=== PATIENT | female | born 1975 | race Caucasian/White ===

== ENCOUNTER 2020-04-18 11:21 | Day surgery (SDC) | payer OTHER ==
[~2020-04-18 11:21] MED LIST: DIPRIVAN 200 MG/20 ML IV ONE; Ketamine HCl 50 MG/ML ONE
[2020-04-18] MEDS ORDERED: BUPIVACAINE 0.5% VIAL IJ ONE (11:22)
[2020-04-18] MEDS ORDERED: Decadron 4 MG INJ IV ONE (11:22)
--- NOTE | 2020-04-18 13:21 | XRAY ---
Indication: Left C3-C6 MBB. Intraoperative fluoroscopy was provided for 22 seconds. 4 digital spot images submitted for interpretation demonstrates posterior needle tips projecting over the expected left C3-C6 nerve roots. Correlate with intraoperative findings/report.
--- NOTE | 2020-04-18 14:58 | XRAY ---
22 seconds fluoroscopy time in surgery for left C3-C6 MBB.
[2020-04-18] MEDS ORDERED: Lactated Ringers 1,000 ML IV ONE (15:11)
== END 2020-04-18 13:10 | disposition home or self-care (01) ==
LOC: SDC-PAIN 11:21
PROVIDERS: ATTEND Psychiatry & Neurology Pain Medicine
DX: M47.812 Spondylosis without myelopathy or radiculopathy, cervical region (principal); I10 Essential (primary) hypertension; F41.8 Other specified anxiety disorders; Z79.899 Other long term (current) drug therapy
CPT/HCPCS: 64490; 64491; 64492; 72020; 77002; 84703; J1100; J2704